=== PATIENT | female | born 1975 | race Caucasian/White ===

== ENCOUNTER 2021-05-22 18:39 | Emergency (ER) | payer BC, SELFPAY ==
[2021-05-22 20:09] VITALS: BP 145/71; PULSE 59; RESP 19; TEMP 36.8; O2SAT 99; BMI 22.9
[2021-05-22 20:19] VITALS: BP 145/71; PULSE 59; RESP 18; TEMP 36.8
--- NOTE | 2021-05-22 20:29 | HMH.EDUTC ---
[facility] [place] Impression: Encounter for laboratory testing for COVID-19 virus Sinusitis Qualifiers: Sinusitis location: unspecified location Chronicity: unspecified Qualified Code(s): J32.9 - Chronic sinusitis, unspecified Disposition: Home, Self-Care Condition on Discharge: Good Instructions: Sinusitis, DI for Sinusitis, Azithromycin Additional Instructions: *Monitor Temp, Over the counter Motrin or Tylenol as directed/as needed Tylenol every 4 hours and Motrin every 6 hours (as long as your family doctor has told you that you can take it) for fever or pain. and straight to ER if unable to lower temp less than 101.0 after medication given *Warm salt water gargles may help to soothe the throat *Throat Lozenges *Warm fluids like tea with honey may help to soothe the throat *Sleep elevated *Humidifier/Vaporizer Follow up IMMEDIATELY for new or worsening symptoms or no Noticeable improvement over the next 48-72 hours. 911 for difficulty breathing or swallowing You were tested for today for COVID19 your test result should be back in the next 24-48 hours, You was given handout to access [facility] portal to get your results if you cant access or no internet access you may call the [facility] You was given a handout with instructions for Self Quarantine and Self isolation for while you wait on test results and what to do if they are positive If you are positive the Health Dept will be contacting you also Make sure to take your Vitamins Vit. C Vit D and Zinc if you can take them Prescriptions: methylPREDNISolone [Medrol 4mg tab] 4 mg PO DIRECTED #21 tab Prescription Printed Azithromycin [Z-Bobby 250mg Tab] 250 mg PO DIRECTED #6 tab Prescription Printed Referrals: Chu Jasmine [Primary Care Provider] - As needed Forms: Work/School Release Time of Disposition: 20:46 Medical Decision Making - Natalio Inquiry Pt receiving controlled substance: No Natalio was queried for this patient: No Vital Signs: 05/22/21 20:09 05/22/21 20:19 Temperature 98.2 F 98.2 F Temperature Source Oral Pulse Rate 59 L Pulse Rate [Left] 59 L Respiratory Rate 19 18 Blood Pressure 145/71 H Blood Pressure [Right Arm] 145/71 H Blood Pressure Mean [Right Arm] 95 02 Sat by Pulse Oximetry 99 Medical Decision Narrative: Patient states that she has taken a zpack and Medrol dose pack in the past without complications or reactions [facility] [place] - General Stated complaint: covid test, SANDERS,[place],Runny nose Time Seen by Provider: 05/22/21 20:29 Mode of Arrival: Ambulatory Source of Information: Patient Limitations: No Limitations Description of Symptoms (Recalled from Triage Doc. by RN): pt c/o SANDERS, runny nose, nausea and light headedness. HEENT Symptoms (Recalled from RN notes): Yes (light headed, SANDERS, runny nose) Resp Symptoms (Recalled from RN notes): No Skin Symptoms (Recalled from RN notes): No MS Symptoms (Recalled from RN notes): No Functional Status (Recalled from RN notes): na - History of Present Illness Provider Complaint: Patient states that she thinks she may have a sinus infection States that she has been having sinus pressure, pain behind her eyes and drainage States that she wanted to get checked for COVID due to she lost her father to COVID - Related Data Previous Rx's Medication Instructions Recorded Azithromycin [Z-Bobby 250mg Tab] 250 mg PO DIRECTED #6 tab 05/22/21 methylPREDNISolone [Medrol 4mg 4 mg PO DIRECTED #21 tab 05/22/21 tab] Allergies Allergy/AdvReac Type Severity Reaction Status Date / Time No Known Drug Allergies Allergy Unknown Unverified 08/24/17 14:15 [NKDA] - Worker's Comp Is this a Worker's Comp case?: No [facility] History - Hepatitis A Screen Drug use history?: No High risk sexual behaviors?: No History of sexually transmitted infection?: No Currently employed?: No Childcare worker?: No Do you have indoor plumbing?: Yes Do you have electricity?: Yes
== END 2021-05-22 20:58 | disposition home or self-care (01) ==
PROVIDERS: Emergency Provider Nurse Practitioner; PCP Family Medicine
DX: J32.9 Chronic sinusitis, unspecified (principal); Z20.822 Contact with and (suspected) exposure to COVID-19
CPT/HCPCS: 99202; C9803; G0463; U0003; U0005